=== PATIENT | female | born 1970 | race Two or more races ===

== ENCOUNTER 2018-12-03 10:34 | Emergency (ER) | payer OTHER ==
[~2018-12-03] VITALS: Ht 162.6 cm; Wt 69.0 kg
--- NOTE | 2018-12-03 11:06 | NUR ---
C/O RIGHT SHOULDER PAIN SINCE MONDAY, 02/23 PS. PATIENT A/OX4, NO DISTRESS NOTED, BREATHING EVEN AND UNLABORED, NO SOB NOTED, KEPT PATIENT COMFORTABLE IN BED, WILL MONITOR.
--- NOTE | 2018-12-03 12:16 | NUR ---
SLING PROVIDED AND APPLIED FOR RIGHT ARM. Patient discharged to home in stable condition. Written and verbal after care instructions given. Patient verbalizes understanding of instruction.
[2018-12-03 12:19] VITALS: BP 137/87
== END 2018-12-03 12:23 | disposition home or self-care (01) ==
LOC: ER 10:44
DX: M75.31 Calcific tendinitis of right shoulder (principal)
CPT/HCPCS: 73030-TC